=== PATIENT | male | born 1965 | race Caucasian/White ===

== ENCOUNTER 2020-11-14 09:48 | Emergency (ER) | payer SELFPAY, OTHER ==
[~2020-11-14] VITALS: Ht 185.4 cm; Wt 113.5 kg
[2020-11-14] MEDS ORDERED: TETANUS/DIPHTHERIA TOX ADSORB ADULT 0.5ML SYR/VIAL (90714) IM ONE (10:10)
[2020-11-14] MEDS ORDERED: RABIES IMMUNE GLOBULIN 1500 INTERNATIONAL UNIT/5ML VIAL (90375) IM ONE (10:10)
[2020-11-14] MEDS ORDERED: RABIES VACCINE HUMAN 2.5 INTERNATIONAL UNITS/ML VIAL (90675) IM ONE (10:10)
[2020-11-14] MEDS ORDERED: BOOSTRIX/ADACEL VACCINE (DIPHTH/PERTUSS/ACELL/TETANUS) 0.5ML SYR IM ONE ×2 (12:45→13:00)
[2020-11-14 13:15] VITALS: BP 164/98
== END 2020-11-14 23:16 | disposition home or self-care (01) ==
LOC: M ED 09:48
DX: S61.452A Open bite of left hand, initial encounter (principal); W55.51XA Bitten by raccoon, initial encounter; Y92.099 Unspecified place in other non-institutional residence as the place of occurrence of the external cause; Y93.9 Activity, unspecified; Y99.9 Unspecified external cause status